=== PATIENT | male | born 2000 | race American Indian/Alaskan Native ===

== ENCOUNTER 2022-04-11 13:28 | Emergency (ER) | payer MEDICAID ==
[2022-04-11] MEDS ORDERED: ONDANSETRON 4 MG/2 ML INJ IV ONE (14:54)
[2022-04-11] MEDS ORDERED: ceFAZolin/NS 1 GM/50 ML 1 GM/50 ML BAG IV ONE (14:54)
[2022-04-11] MEDS ORDERED: SODIUM CHLORIDE 0.9% 1000 ML 1,000 ML IV ONE (14:54)
[2022-04-11] MEDS ORDERED: TETANUS,DIPH,PERTUSS(ACELL) VACCINE 0.5 ML SYRINGE IM ONE (14:54)
[2022-04-11] MEDS ORDERED: MORPHINE 4 MG/1 ML INJ IV ONE (14:54)
[2022-04-11 14:55] VITALS: BP 113/65
[2022-04-11] MEDS ORDERED: ceFAZolin 1 GM VIAL IM ONE (15:18)
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
[2022-04-11] MEDS ORDERED: ONDANSETRON 4 MG/2 ML INJ ONE (15:34)
[2022-04-11] MEDS ORDERED: MORPHINE 4 MG/1 ML INJ ONE (15:35)
== END 2022-04-11 16:12 | disposition home or self-care (01) ==
LOC: ED 13:28
DX: T23.202A Burn of second degree of left hand, unspecified site, initial encounter (principal); T23.232A Burn of second degree of multiple left fingers (nail), not including thumb, initial encounter; Z79.899 Other long term (current) drug therapy; X08.8XXA Exposure to other specified smoke, fire and flames, initial encounter; Y93.89 Activity, other specified; Y92.89 Other specified places as the place of occurrence of the external cause; Y99.8 Other external cause status
CPT/HCPCS: 96372; 99283; J0690; J2270; J2405